=== PATIENT | male | born 1995 | race Caucasian/White ===

== ENCOUNTER 2018-02-01 19:56 | Emergency (ER) | payer OTHER ==
[~2018-02-01] VITALS: Ht 180.3 cm; Wt 81.7 kg
[~2018-02-01 19:56] MED LIST: NOHOMEMEDICATIONS
[2018-02-01 20:32] LABS: ABSOLUTE EOSINOPHILS 0.1 thou/uL (0.0-0.7); ABSOLUTE LYMPHOCYTES 1.5 thou/uL (0.8-5.3); ABSOLUTE MONOCYTES 0.6 thou/uL (0.0-1.2); BASOPHILS 0.7 %; EOSINOPHILS 1.6 %; HEMATOCRIT 47.3 % (42.0-52.0); HEMOGLOBIN 16.4 gm/dL (14.0-18.0); LYMPHOCYTES 23.9 %; MCHC 34.6 g/dL (28.0-37.0); MCV 86.6 fL (80.0-100.0); MONOCYTES 9.3 %; NUCLEATED RBCS 0 /100WBC; PLATELET COUNT* 216 thou/uL (150-400); POLYS 64.5 %; RBC 5.47 mil/uL (4.50-6.00); RDW-CV 12.8 % (10.5-14.5); WBC 6.2 thou/uL (4.0-11.0)
[2018-02-01 20:38] LABS: CREATININE 0.8 mg/dL (0.6-1.3); POTASSIUM 3.8 mmol/L (3.5-5.1)
[2018-02-01 20:42] LABS: TOTAL BILIRUBIN 0.9 mg/dL (<0.1-1.0); TOTAL PROTEIN 7.6 g/dL (6.4-8.2)
[2018-02-01 20:52] LABS: URINE BILIRUBIN NEGATIVE (Negative); URINE BLOOD NEGATIVE (Negative); URINE CLARITY CLEAR; URINE COLOR YELLOW; URINE GLUCOSE-RANDOM NEGATIVE (Negative); URINE KETONES NEGATIVE (Negative); URINE LEUKOCYTES-REFLEX NEGATIVE (Negative); URINE NITRITE-REFLEX NEGATIVE (Negative); URINE PROTEIN NEGATIVE (Negative); URINE SPECIFIC GRAVITY 1.015 (1.005-1.030); URINE UROBILINOGEN 0.2 E.U./dl (0.2-1.0)
[2018-02-01 22:05] VITALS: BP 113/79
--- NOTE | 2018-02-02 11:09 | EKG ---
[place] [address] ELECTROCARDIOGRAM REPORT Name: KASSIE RAVI Room: [facility]#: [id number] Admission: 02/01/18 Attend Phys: Discharge: 02/01/18 Date of : [birth year] Report #: [id number] THIS REPORT FOR: //name// [facility] ED Test Date: 2018-02-01 Test Time: 20:06:15 Pat Name: KASSIE RAVI Department: Room: Gender: M Production Analyst: ANDREA : 1995 Requested By: Isabel Oliver Order Number: [id number] Reading MD: Fermin Garcia Measurements Intervals [place] Rate: 77 P: 70 CO: 145 QRS: 90 QRSD: 88 T: 54 QT: 338 QTc: 383 Interpretive Statements Sinus rhythm Borderline right axis deviation ST elev, probable normal early repol pattern Compared to ECG 06/12/2016 16:08:59 T-wave abnormality no longer present ST (T wave) deviation still present Electronically Signed On 02-02-2018 11:08:58 CDT by Fermin Garcia [email or web address] <ELECTRONICALLY SIGNED> By: Fermin Garcia MD, FACC 02/02/18 1108 05 05 Fermin Garcia MD, [facility] /EPI
== END 2018-02-01 22:06 | disposition home or self-care (01) ==
LOC: M.ERS 19:56
PROVIDERS: Physician Assistant Surgical
DX: S33.5XXA Sprain of ligaments of lumbar spine, initial encounter (principal); F17.210 Nicotine dependence, cigarettes, uncomplicated; Z88.8 Allergy status to other drugs, medicaments and biological substances; X58.XXXA Exposure to other specified factors, initial encounter; Y93.89 Activity, other specified; Y92.89 Other specified places as the place of occurrence of the external cause; Y99.8 Other external cause status

== ENCOUNTER 2021-01-08 19:56 | Emergency (ER) | payer OTHER ==
[~2021-01-08] VITALS: Ht 180.3 cm; Wt 81.7 kg
[2021-01-08 20:28] LABS: URINE BILIRUBIN NEGATIVE (Negative); URINE BLOOD NEGATIVE (Negative); URINE CLARITY CLEAR; URINE COLOR YELLOW; URINE GLUCOSE-RANDOM NEGATIVE (Negative); URINE KETONES TRACE (Negative); URINE LEUKOCYTES-REFLEX NEGATIVE (Negative); URINE NITRITE-REFLEX NEGATIVE (Negative); URINE PROTEIN NEGATIVE (Negative); URINE SPECIFIC GRAVITY 1.025 (1.005-1.030); URINE UROBILINOGEN 0.2 E.U./dl (0.2-1.0)
[2021-01-08 23:05] LABS: ABSOLUTE EOSINOPHILS 0.2 thou/uL (0.0-0.7); ABSOLUTE MONOCYTES 0.5 thou/uL (0.0-1.2); ABSOLUTE NEUTROPHILS 5.6 thou/uL (1.6-8.1); BASOPHILS 0.3 %; EOSINOPHILS 2.3 %; HEMATOCRIT 44.8 % (42.0-52.0); LYMPHOCYTES 23.8 %; MCH 31.3 pg (26.0-34.0); MCHC 35.8 g/dL (28.0-37.0); MCV 87.5 fL (80.0-100.0); MONOCYTES 6.4 %; MPV 8.9 fl. (7.2-11.1); NUCLEATED RBCS 0 /100WBC; PLATELET COUNT* 235 thou/uL (150-400); POLYS 67.2 %; RBC 5.12 mil/uL (4.50-6.00); RDW-CV 12.3 % (10.5-14.5); WBC 8.3 thou/uL (4.0-11.0)
[2021-01-08 23:25] LABS: CREATININE 0.9 mg/dL (0.6-1.3); POTASSIUM 3.9 mmol/L (3.5-5.1)
[2021-01-08 23:30] LABS: ALBUMIN 4.2 g/dL (3.4-5.0); TOTAL BILIRUBIN 0.6 mg/dL (<0.1-1.0); TOTAL PROTEIN 8.3 g/dL (6.4-8.2)
[2021-01-09] MEDS ORDERED: NAPROSYN500 MG PO (00:33)
[2021-01-09 00:42] VITALS: BP 140/89
== END 2021-01-09 00:42 | disposition home or self-care (01) ==
LOC: M.ERS 19:56
PROVIDERS: Nurse Practitioner Family; Personal Emergency Response Attendant
DX: R07.81 Pleurodynia (principal); Z20.822 Contact with and (suspected) exposure to COVID-19; Z91.09 Other allergy status, other than to drugs and biological substances